=== PATIENT | female | born 1980 | race Caucasian/White ===

== ENCOUNTER 2021-07-07 11:22 | Emergency (ER) | payer OTHER ==
[2021-07-07 12:45] LABS: HEMOGLOBIN 13.7 gm/dl (12.3-15.3); RED BLOOD COUNT 4.38 M/UL (4.00-5.10); WHITE BLOOD COUNT 5.3 K/UL (4.5-11.0)
[2021-07-07 13:06] LABS: BUN/CREATININE RATIO 18 (0-10)
[2021-07-07] MEDS ORDERED: MIRALAX17 GM PO (16:38)
[2021-07-07] MEDS ORDERED: MACROBID 100 M100 MG PO (16:38)
== END 2021-07-07 16:52 | disposition home or self-care (01) ==
LOC: ER1 11:22
PROVIDERS: Nurse Practitioner
DX: N39.0 Urinary tract infection, site not specified (principal); K59.00 Constipation, unspecified; Z88.1 Allergy status to other antibiotic agents
CPT/HCPCS: 80053; 81001; 84703; 85025; 99284; J2212; Q9967